=== PATIENT | male | born 1965 | race African-American/Black ===

== ENCOUNTER 2018-10-19 17:50 | Emergency (ER) | payer BC ==
[~2018-10-19] VITALS: Ht 190.5 cm; Wt 104.3 kg
[2018-10-19] MEDS ORDERED: CHLO25CA22 PO (18:00)
[2018-10-19 18:24] LABS: BASOPHILS % (AUTO) 0.6 % (0.0-2.0); EOSINOPHILS # (AUTO) 0.2 K/uL (0.0-0.7); EOSINOPHILS % (AUTO) 2.5 % (0.0-7.0); HEMATOCRIT 41.7 % (36.7-47.1); HEMOGLOBIN 14.2 g/dL (12.5-16.3); LYMPHOCYTES # (AUTO) 1.6 K/uL (20.0-40.0); LYMPHOCYTES % (AUTO) 21.3 % (20.5-51.5); MEAN CORPUSCULAR HEMOGLOBIN 31.9 uug (23.8-33.4); MEAN CORPUSCULAR HGB CONC 34 g/dL (32.5-36.3); MEAN CORPUSCULAR VOLUME 93.7 fL (73.0-96.2); MONOCYTES # (AUTO) 0.3 K/uL (2.0-10.0); MONOCYTES % (AUTO) 4.3 % (0.0-11.0); NEUTROPHILS # (AUTO) 5.5 K/uL (1.8-8.9); NEUTROPHILS % (AUTO) 71.3 % (38.5-71.5); PLATELET COUNT (AUTO) 202 K/uL (152-348); RED BLOOD CELL COUNT(AUTO) 4.45 MIL/uL (4.06-5.63); WHITE BLOOD COUNT (AUTO) 7.7 K/uL (3.6-10.2)
[2018-10-19] MEDS ORDERED: LORAZEPAM 2 MG/1 ML VIAL ONE (18:28)
[2018-10-19 18:30] LABS: CREATININE 1.6 mg/dL (0.6-1.3); POTASSIUM 4.3 mmol/L (3.5-5.1)
[2018-10-19] MEDS ORDERED: ONDANSETRON ODT 4 MG TAB.RAPDIS SL ONE (18:30)
[2018-10-19] MEDS ORDERED: LORAZEPAM 2 MG/1 ML VIAL IM ONE ×2 (18:30)
[2018-10-19] MEDS ORDERED: ONDANSETRON ODT 4 MG TAB.RAPDIS ONE (18:34)
[2018-10-19 18:42] LABS: BILIRUBIN,DIRECT 0.3 mg/dL (0.0-0.2); BILIRUBIN,TOTAL 1.1 mg/dL (0.2-1.0); TOTAL PROTEIN, SERUM 7.7 g/dL (6.4-8.2)
[2018-10-19] MEDS ORDERED: LORAZEPAM 0.5 MG TABLET PO ONE (19:00)
[2018-10-19] MEDS ORDERED: LORAZEPAM 1 MG TABLET ONE (19:00)
--- NOTE | 2018-10-19 19:01 | NUR ---
Patient discharged by MD in stable conditon & brisk staedy gait. Written and verbal after care instructions given to patient. Patient verbalizes understanding of instructions. Patient will call his own detox center to pick him up in the ER waiting room.
== END 2018-10-19 19:04 | disposition home or self-care (01) ==
LOC: ER 17:52
DX: R42 Dizziness and giddiness (principal); R11.0 Nausea; R10.9 Unspecified abdominal pain; F17.290 Nicotine dependence, other tobacco product, uncomplicated; Z79.899 Other long term (current) drug therapy
CPT/HCPCS: 36415; 70450; 80048; 80076; 83690; 85025; 93005; 96372; 99284; 99406; J2060; A4663; Q0162

== ENCOUNTER 2018-12-03 11:25 | Emergency (ER) | payer BC ==
[~2018-12-03] VITALS: Ht 190.5 cm; Wt 99.8 kg
[~2018-12-03 11:25] MED LIST: CHLO25CA22 PO
--- NOTE | 2018-12-03 11:33 | NUR ---
JOSE PAZ AT BEDSIDE FOR MSE.
--- NOTE | 2018-12-03 12:50 | NUR ---
Patient discharged to home in stable conditon. Written and verbal after care instructions given. Patient verbalizes understanding of instructions. PT D/C W/ PRESCRIPTIONS. ALL BELONGINGS W/ PT. PT SELF-AMBULATED W/O DIFFICULTY.
[2018-12-03 12:51] VITALS: BP 132/88
== END 2018-12-03 12:52 | disposition home or self-care (01) ==
LOC: ER 11:25
DX: J18.9 Pneumonia, unspecified organism (principal); Z76.0 Encounter for issue of repeat prescription; F17.200 Nicotine dependence, unspecified, uncomplicated; Z79.899 Other long term (current) drug therapy
CPT/HCPCS: 71046; A4663

== ENCOUNTER 2018-12-09 10:39 | Emergency (ER) | payer BC ==
[~2018-12-09] VITALS: Ht 190.5 cm; Wt 99.8 kg
--- NOTE | 2018-12-09 10:59 | NUR ---
PT A/OX4, PRESENTS TO THE ER STATING HE WAS INSTRUCTED BY SCHOOL NURSE TO VISIT THE ER DUE TO "HIGH B/P". VSS. PT REPORTS ANXIETY R/T HIGH B/P. PT DENIES ANY DISCOMFORT AT THIS TIME.
--- NOTE | 2018-12-09 11:03 | NUR ---
JOSE PAZ AT BEDSIDE FOR MSE.
--- NOTE | 2018-12-09 11:29 | NUR ---
PT TAKEN TO RADIOLOGY FOR CT SCAN.
--- NOTE | 2018-12-09 11:44 | NUR ---
PT BACK IN ER FROM RADIOLOGY.
[2018-12-09 11:48] LABS: BASOPHILS % (AUTO) 0.4 % (0.0-2.0); EOSINOPHILS # (AUTO) 0.1 K/uL (0.0-0.7); EOSINOPHILS % (AUTO) 1.2 % (0.0-7.0); HEMATOCRIT 31.6 % (36.7-47.1); HEMOGLOBIN 10.6 g/dL (12.5-16.3); LYMPHOCYTES % (AUTO) 22.2 % (20.5-51.5); MEAN CORPUSCULAR HEMOGLOBIN 30.8 uug (23.8-33.4); MEAN CORPUSCULAR HGB CONC 34 g/dL (32.5-36.3); MONOCYTES # (AUTO) 0.6 K/uL (2.0-10.0); NEUTROPHILS # (AUTO) 6.1 K/uL (1.8-8.9); NEUTROPHILS % (AUTO) 69.2 % (38.5-71.5); PLATELET COUNT (AUTO) 345 K/uL (152-348); RED BLOOD CELL COUNT(AUTO) 3.44 MIL/uL (4.06-5.63); WHITE BLOOD COUNT (AUTO) 8.9 K/uL (3.6-10.2)
[2018-12-09 11:50] LABS: CARBON DIOXIDE 24 mmol/L (21-32); CHLORIDE 103 mmol/L (98-107); CREATININE 1.2 mg/dL (0.6-1.3); GLUCOSE 103 mg/dL (74-106); POTASSIUM 3.6 mmol/L (3.5-5.1); UREA NITROGEN, BLOOD 16 mg/dL (7-18)
[2018-12-09 11:56] LABS: ALANINE AMINOTRANSFERASE 107 U/L (16-63); ALKALINE PHOSPHATASE 75 U/L (50-136); ASPARTATE AMINOTRANSFERASE 78 U/L (15-37); BILIRUBIN,DIRECT 0.3 mg/dL (0.0-0.2); BILIRUBIN,TOTAL 0.9 mg/dL (0.2-1.0); TOTAL PROTEIN, SERUM 8.5 g/dL (6.4-8.2)
[2018-12-09 12:06] LABS: ETHANOL < 3 MG/DL (0-0)
[2018-12-09 12:17] VITALS: BP 123/78
--- NOTE | 2018-12-09 12:17 | NUR ---
Patient discharged to home in stable conditon. Written and verbal after care instructions given. Patient verbalizes understanding of instructions. PT D/C W/ PRESCRIPTION. ALL BELONGINGS W/ PT. PT SELF-AMBULATED W/O DIFFICULTY.
== END 2018-12-09 12:18 | disposition home or self-care (01) ==
LOC: ER 10:39
DX: I10 Essential (primary) hypertension (principal); R42 Dizziness and giddiness; F17.200 Nicotine dependence, unspecified, uncomplicated; Z79.899 Other long term (current) drug therapy
CPT/HCPCS: 36415; 70450; 80048; 80076; 82140; 84484; 85025; 85730; 93005; 99284; G0480; 70030-TC; A4663

== ENCOUNTER 2019-03-16 18:25 | Emergency (ER) | payer BC ==
[~2019-03-16] VITALS: Ht 190.5 cm; Wt 99.8 kg
[2019-03-16] MEDS ORDERED: LORA-259 PO (18:36)
[2019-03-16] MEDS ORDERED: CLON0.2T PO (18:36)
--- NOTE | 2019-03-16 18:39 | NUR ---
PT A/OX4, BIB STAFF MEMBER FROM [facility], C/O L SHOULDER PAIN AND ETOH INTOXICATION. SHOULDER PAIN IS PROVOKED UPON MOVEMENT, SHARP IN QUALITY, DOES NOT RADIATE, 8/10, CONSTANT. NO DEFORMITY TO THE SHOULDER, ROM INTACT. VS WNL. PT DENIES C/P, SOB, N/V/D, DIZZINESS, HEADACHE.
--- NOTE | 2019-03-16 18:47 | NUR ---
AUTOMOBILE TRAVEL CLUB COUNSELOR AT BEDSIDE.
[2019-03-16] MEDS ORDERED: MORPHINE SULFATE 4 MG/1 ML DISP.SYRIN ONE (18:56)
--- NOTE | 2019-03-16 18:59 | NUR ---
SHIFT REPORT GIVEN TO RACHAEL Clemens RN.
[2019-03-16] MEDS ORDERED: MORPHINE SULFATE 4 MG/1 ML DISP.SYRIN IM ONE (19:00)
--- NOTE | 2019-03-16 19:12 | NUR ---
Pt out of ER for CT.
--- NOTE | 2019-03-16 19:23 | NUR ---
Pt back to ER from CT.
--- NOTE | 2019-03-16 20:11 | NUR ---
Patient discharged to home in stable conditon. Written and verbal after care instructions given. Patient verbalizes understanding of instructions. Pt ambulated out of ER with steady gait, no acute signs of distress, VSS, all belongings taken. Patient accompanied by [facility] detox staff to be driven back to detox facility via private vehicle.
[2019-03-16 20:14] VITALS: BP 135/80
== END 2019-03-16 20:15 | disposition home or self-care (01) ==
LOC: ER 18:25
DX: S42.125A Nondisplaced fracture of acromial process, left shoulder, initial encounter for closed fracture (principal); S09.90XA Unspecified injury of head, initial encounter; J40 Bronchitis, not specified as acute or chronic; F17.290 Nicotine dependence, other tobacco product, uncomplicated; Z79.899 Other long term (current) drug therapy; Y04.0XXA Assault by unarmed brawl or fight, initial encounter; Y93.89 Activity, other specified; Y92.89 Other specified places as the place of occurrence of the external cause; Y99.8 Other external cause status
CPT/HCPCS: 70450; 71045; 73030; 96372; 99284; 99406; J2270; A4663

== ENCOUNTER 2019-03-19 03:19 | Emergency (ER) | payer BC ==
[~2019-03-19] VITALS: Ht 190.5 cm; Wt 99.8 kg
[~2019-03-19 03:19] MED LIST changes: -CHLO25CA22 PO; +CLON0.2T PO; +LORA-259 PO
[2019-03-19] MEDS ORDERED: IV NORMAL SALINE 1000 ML BAG IV ONE (03:30)
--- NOTE | 2019-03-19 03:31 | NUR ---
D/c information : cupola operator from [facility], [place] [phone]
--- NOTE | 2019-03-19 03:35 | NUR ---
Patient ambulated with stable gait. Speech is clear, speaks in complete sentences. No neuro deficits. Patient came for c/o pain primarily, and heavy chest feeling since earlier today. Patient came from a detox clinic. Respiratory even and unlabored, no cough no sob. No GI/ distress noted. Patient in bed at lowest position, sr upx2, call light within reach. fall precautions implemented per protocol.
[2019-03-19 03:58] LABS: BASOPHILS % (AUTO) 0.8 % (0.0-2.0); CREATININE 1.2 mg/dL (0.6-1.3); EOSINOPHILS # (AUTO) 0.2 K/uL (0.0-0.7); EOSINOPHILS % (AUTO) 2.9 % (0.0-7.0); HEMATOCRIT 35.3 % (36.7-47.1); HEMOGLOBIN 11.7 g/dL (12.5-16.3); LYMPHOCYTES # (AUTO) 2.4 K/uL (20.0-40.0); LYMPHOCYTES % (AUTO) 42.2 % (20.5-51.5); MEAN CORPUSCULAR HEMOGLOBIN 30.3 uug (23.8-33.4); MEAN CORPUSCULAR HGB CONC 33 g/dL (32.5-36.3); MEAN CORPUSCULAR VOLUME 91.4 fL (73.0-96.2); MONOCYTES # (AUTO) 0.3 K/uL (2.0-10.0); MONOCYTES % (AUTO) 5.4 % (0.0-11.0); NEUTROPHILS # (AUTO) 2.8 K/uL (1.8-8.9); NEUTROPHILS % (AUTO) 48.7 % (38.5-71.5); PLATELET COUNT (AUTO) 217 K/uL (152-348); POTASSIUM 4.2 mmol/L (3.5-5.1); RED BLOOD CELL COUNT(AUTO) 3.87 MIL/uL (4.06-5.63); WHITE BLOOD COUNT (AUTO) 5.8 K/uL (3.6-10.2)
[2019-03-19] MEDS ORDERED: IV NORMAL SALINE 250 ML IV ONE (04:07)
[2019-03-19] MEDS ORDERED: SWABABLE VALVE TRANSFER SET EA MC ONE (04:07)
[2019-03-19] MEDS ORDERED: IOHEXOL 350 100 ML INFUS..BTL ONE (04:07)
[2019-03-19 04:11] LABS: BILIRUBIN,DIRECT 0.2 mg/dL (0.0-0.2); BILIRUBIN,TOTAL 0.7 mg/dL (0.2-1.0); TOTAL PROTEIN, SERUM 6.9 g/dL (6.4-8.2)
--- NOTE | 2019-03-19 05:03 | NUR ---
Patient discharged to home in stable conditon. Written and verbal after care instructions given. Patient verbalizes understanding of instructions. Patient ambulated with stable gait. Denies any acute pain.
[2019-03-19 05:08] VITALS: BP 126/78
== END 2019-03-19 05:04 | disposition home or self-care (01) ==
LOC: ER 03:21
DX: S29.9XXA Unspecified injury of thorax, initial encounter (principal); F17.200 Nicotine dependence, unspecified, uncomplicated; Z79.899 Other long term (current) drug therapy; X58.XXXA Exposure to other specified factors, initial encounter; Y93.89 Activity, other specified; Y92.89 Other specified places as the place of occurrence of the external cause; Y99.8 Other external cause status
CPT/HCPCS: 36415; 71275; 80048; 80076; 83880; 84484; 85025; 85730; 93005; 99284; Q9967; 70030-TC; A4663; J7030; J7050

== ENCOUNTER 2019-05-09 11:24 | Emergency (ER) | payer BC ==
[~2019-05-09] VITALS: Ht 190.5 cm; Wt 94.3 kg
--- NOTE | 2019-05-09 11:56 | NUR ---
Dr Blair at bedside doing his MSE.
[2019-05-09] MEDS ORDERED: HYDROCODONE/APAP 5-325MG TABLET PO ONE (12:00)
[2019-05-09] MEDS ORDERED: HYDROCODONE/APAP 5-325MG TABLET ONE (12:08)
--- NOTE | 2019-05-09 13:19 | NUR ---
Decreased pains expressed by patient. Patient is also discharged to home in stable conditon with brisk steady gait. Written and verbal after care instructions given to patient. Patient verbalizes understanding & compliance of instructions.
== END 2019-05-09 13:20 | disposition home or self-care (01) ==
LOC: ER 11:24
DX: S29.012A Strain of muscle and tendon of back wall of thorax, initial encounter (principal); F17.200 Nicotine dependence, unspecified, uncomplicated; Z79.899 Other long term (current) drug therapy; X50.1XXA Overexertion from prolonged static or awkward postures, initial encounter; Y93.89 Activity, other specified; Y92.89 Other specified places as the place of occurrence of the external cause; Y99.8 Other external cause status
CPT/HCPCS: 71046; A4663

== ENCOUNTER 2019-09-20 15:20 | Emergency (ER) | payer BC, MEDICAID ==
[~2019-09-20] VITALS: Ht 190.5 cm; Wt 95.3 kg
--- NOTE | 2019-09-20 15:37 | NUR ---
Patient ambulated to bathroom with brisk steady gait.
--- NOTE | 2019-09-20 15:40 | NUR ---
Patient said that he was able to "pee well". Urine sample was collected & sent to lab.
[2019-09-20 15:58] LABS: *BILIRUBIN,URIN NEGATIVE (NEGATIVE); *BLOOD, URINE NEGATIVE (NEGATIVE); *CLARITY,URINE CLEAR (CLEAR); *COLOR,URINE AMBER (YELLOW); *KETONES,URINE TRACE (NEGATIVE); *UROBILINOGEN,URINE 0.2 E.U./dl (NORMAL); LEUKOCYTE ESTERASE ,URINE NEGATIVE (NEGATIVE); NITRITE, URINE NEGATIVE (NEGATIVE); UGLUCOSE NEGATIVE (NEGATIVE)
[2019-09-20 16:08] LABS: COARSE GRANULAR CASTS,URINE 0-3 /LPF; MUCUS,URINE MANY /LPF (0-FEW)
[2019-09-20 16:08] LABS: BASOPHILS % (AUTO) 0.4 % (0.0-2.0); EOSINOPHILS # (AUTO) 0.1 K/uL (0.0-0.7); HEMATOCRIT 43.1 % (36.7-47.1); HEMOGLOBIN 14.4 g/dL (12.5-16.3); LYMPHOCYTES # (AUTO) 3.5 K/uL (20.0-40.0); LYMPHOCYTES % (AUTO) 36.5 % (20.5-51.5); MEAN CORPUSCULAR HEMOGLOBIN 31.2 uug (23.8-33.4); MEAN CORPUSCULAR HGB CONC 34 g/dL (32.5-36.3); MEAN CORPUSCULAR VOLUME 93.1 fL (73.0-96.2); MONOCYTES # (AUTO) 0.9 K/uL (2.0-10.0); MONOCYTES % (AUTO) 9.2 % (0.0-11.0); NEUTROPHILS # (AUTO) 5.1 K/uL (1.8-8.9); NEUTROPHILS % (AUTO) 52.9 % (38.5-71.5); PLATELET COUNT (AUTO) 339 K/uL (152-348); RED BLOOD CELL COUNT(AUTO) 4.63 MIL/uL (4.06-5.63); WHITE BLOOD COUNT (AUTO) 9.6 K/uL (3.6-10.2)
[2019-09-20 16:14] LABS: *AMPHETAMINE, URINE POSITIVE (NEGATIVE); *BARBITURATE, URINE NEGATIVE (NEGATIVE); *CANNABINOID, URINE NEGATIVE (NEGATIVE); *COCCAINE, URINE POSITIVE (NEGATIVE); *OPIATE, URINE NEGATIVE (NEGATIVE); *PHENCYCLIDINE SCREEN,URINE NEGATIVE (NEGATIVE)
[2019-09-20 16:16] LABS: CARBON DIOXIDE 24 mmol/L (21-32); CHLORIDE 100 mmol/L (98-107); CREATININE 1.1 mg/dL (0.6-1.3); GLUCOSE 83 mg/dL (74-106); POTASSIUM 3.9 mmol/L (3.5-5.1); UREA NITROGEN, BLOOD 19 mg/dL (7-18)
[2019-09-20 16:22] LABS: ALANINE AMINOTRANSFERASE 450 U/L (16-63); ALKALINE PHOSPHATASE 89 U/L (50-136); ASPARTATE AMINOTRANSFERASE 367 U/L (15-37); BILIRUBIN,DIRECT 0.4 mg/dL (0.0-0.2); BILIRUBIN,TOTAL 1.2 mg/dL (0.2-1.0); TOTAL PROTEIN, SERUM 8.8 g/dL (6.4-8.2)
[2019-09-20 16:23] LABS: ACETAMINOPHEN < 2.0 ug/mL (10-30); ETHANOL 51 MG/DL (0-0)
[2019-09-20] MEDS ORDERED: PAXIL (16:30)
[2019-09-20] MEDS ORDERED: BUPR100T5 PO (16:30)
[2019-09-20] MEDS ORDERED: LITH300T3 PO (16:30)
[2019-09-20] MEDS ORDERED: ELIQUIS (16:30)
[2019-09-20] MEDS ORDERED: ARIP10TA9 PO (16:30)
--- NOTE | 2019-09-20 17:13 | NUR ---
Patient is resting comfortably on gurney with eyes closed, NAD. When patient is awake, he is seen using his cellphone, pending results and disposition, calm & cooperative@this time
--- NOTE | 2019-09-20 17:20 | NUR ---
Pt states he stated what he said earlier at triage because he was looking for a place to stay. Pt now states he does not feel suicidal and wants to leave because he "wants to go get high". Offered pt information about homeless shelters but pt stated he has a place to live with his friend. Pt has no other medical complaints and ambulated out of ER with steady gait. ERMD notified.
== END 2019-09-20 17:28 | disposition left against medical advice (07) ==
LOC: ER 15:20
DX: F31.9 Bipolar disorder, unspecified (principal); F19.90 Other psychoactive substance use, unspecified, uncomplicated; F17.200 Nicotine dependence, unspecified, uncomplicated; Z79.899 Other long term (current) drug therapy
CPT/HCPCS: 36415; 80048; 80076; 80307; 81000; 81001; 85025; 93005; 99284; G0480 ×2; G0481; A4663

== ENCOUNTER 2019-09-20 18:20 | Inpatient (IN) | payer MEDICAID ==
[~2019-09-20] VITALS: Ht 190.5 cm; Wt 90.7 kg
[~2019-09-20 18:20] MED LIST changes: +ARIP10TA9 PO; +BUPR100T5 PO; -CLON0.2T PO; +ELIQUIS; +LITH300T3 PO; -LORA-259 PO; +PAXIL
--- NOTE | 2019-09-20 18:23 | NUR ---
ATTEMPTED TO TRAIGE PT, PT WAS NOT FOUND IN ER WAITING ROOM.
--- NOTE | 2019-09-20 18:37 | NUR ---
PT IS IN ROOM 3, SECURITY IS AT BEDSIDE FOR 1:1 OBSERVATION.
--- NOTE | 2019-09-20 18:47 | NUR ---
Psych inventory worker Lidya Wagoner EOL=[id number]
[2019-09-20] MEDS ORDERED: IV NS 1000 ML 1,000 ML IV ONE (19:00)
[2019-09-20] MEDS ORDERED: IV NORMAL SALINE 1000 ML BAG IV ONE ×2 (19:15)
[2019-09-20] MEDS ORDERED: LORAZEPAM 2 MG/1 ML VIAL IV ONE (19:30)
[2019-09-20 19:51] LABS: BASOPHILS # (AUTO) 0.1 K/uL (0.0-8.0); EOSINOPHILS # (AUTO) 0.1 K/uL (0.0-0.7); EOSINOPHILS % (AUTO) 1.2 % (0.0-7.0); HEMATOCRIT 41.1 % (36.7-47.1); HEMOGLOBIN 13.7 g/dL (12.5-16.3); LYMPHOCYTES # (AUTO) 3.6 K/uL (20.0-40.0); LYMPHOCYTES % (AUTO) 35.8 % (20.5-51.5); MEAN CORPUSCULAR HEMOGLOBIN 31.2 uug (23.8-33.4); MEAN CORPUSCULAR HGB CONC 33 g/dL (32.5-36.3); MEAN CORPUSCULAR VOLUME 93.4 fL (73.0-96.2); MONOCYTES # (AUTO) 1.2 K/uL (2.0-10.0); MONOCYTES % (AUTO) 11.5 % (0.0-11.0); NEUTROPHILS # (AUTO) 5.1 K/uL (1.8-8.9); NEUTROPHILS % (AUTO) 50.5 % (38.5-71.5); PLATELET COUNT (AUTO) 312 K/uL (152-348); WHITE BLOOD COUNT (AUTO) 10.1 K/uL (3.6-10.2)
[2019-09-20 20:02] LABS: CARBON DIOXIDE 22 mmol/L (21-32); CHLORIDE 100 mmol/L (98-107); CREATININE 1.1 mg/dL (0.6-1.3); GLUCOSE 86 mg/dL (74-106); POTASSIUM 3.7 mmol/L (3.5-5.1); UREA NITROGEN, BLOOD 21 mg/dL (7-18)
[2019-09-20 20:06] LABS: ALANINE AMINOTRANSFERASE 426 U/L (16-63); ALKALINE PHOSPHATASE 84 U/L (50-136); ASPARTATE AMINOTRANSFERASE 350 U/L (15-37); BILIRUBIN,DIRECT 0.3 mg/dL (0.0-0.2); BILIRUBIN,TOTAL 1.2 mg/dL (0.2-1.0); LIPASE 75 U/L (73-393); TOTAL PROTEIN, SERUM 8.2 g/dL (6.4-8.2)
[2019-09-20 20:07] LABS: ACETAMINOPHEN < 2.0 ug/mL (10-30)
[2019-09-20 20:18] LABS: THYROID STIMULATING HORMONE 1.06 mIU/mL (0.358-3.740)
--- NOTE | 2019-09-20 21:37 | NUR ---
EPIC CALLED DR MARTINI
[2019-09-20] MEDS ORDERED: SWABABLE VALVE TRANSFER SET EA MC ONE (21:39)
[2019-09-20] MEDS ORDERED: IOHEXOL 300MG/ML 100 ML INFUS..BTL ONE (21:39)
[2019-09-20] MEDS ORDERED: IV NORMAL SALINE 250 ML IV ONE (21:39)
[2019-09-20] MEDS ORDERED: AZITHROMYCIN 250 MG TABLET PO ONE (21:45)
[2019-09-20] MEDS ORDERED: CEFTRIAXONE 500 MG VIAL IM ONE (21:45)
[2019-09-20] MEDS ORDERED: Z GUARD REMEDY PASTE 57 GM TUBE TOP PRN (22:00)
[2019-09-20] MEDS ORDERED: TEMAZEPAM 15 MG CAPSULE PO PRN (22:00)
[2019-09-20] MEDS ORDERED: ONDANSETRON 4 MG/2 ML VIAL IV PRN (22:00)
[2019-09-20] MEDS ORDERED: MAGNESIUM HYDROXIDE 30 ML LIQUID UDC PO PRN (22:00)
[2019-09-20] MEDS ORDERED: ZIPRASIDONE MESYLATE 20 MG VIAL IM ONE ×4 (22:04→22:45)
[2019-09-20] MEDS ORDERED: CEFTRIAXONE /D5W 50ML IVPB **ER PYXIS IV ONE (22:19)
--- NOTE | 2019-09-21 02:00 | NUR ---
restraints removed, patient sleeping, calm, cooperative, follows commands.
--- NOTE | 2019-09-21 02:18 | NUR ---
patient transferred to tele floor in stable condition. patient transferred via antoni with BURAK Woodruff and upscale security officer, Polly.
--- NOTE | 2019-09-21 03:00 | NUR ---
Patient arrived in unit at around 0210 via gurney, transported by ER nurse. Pt asleep and hard to arouse but appears comfortable. Noted with tremors. CIWA score: 12. Per Er report patient given Ativan 2mg and Geodon 10mg for substance use withdrawal, patient tested positive on Coccaine/Metamphetamines and Alcohol level is 0.10. Appeared to be effective for patient, as he is resting at this time. All belongings accounted for, valuable belongings placed in safe by Charge Nurse and Primary nurse witnessed. Patient with 900$ nguyen, couple of bank cards, identification cards, SS card, and business cards inside his wallet. RN co-signed receipt, patient unable to sign because he is still out. Cigarettes (2), Lighters (3), Phones (2), Wire cords (3) placed in Contraband locker, with jayne Toney witnessing. All items listed and placed in chart. Initial assessment done, no noted skin issues. Unable to get information from patient, relied on previous medical records. Sinus rhythm on tele, slightly tachycardic at 95. Kept comfortable and safe, removed all dangerous items at bedside. Will continue to monitor.
[2019-09-21 03:22] VITALS: BP 114/71
[2019-09-21 05:26] VITALS: BP 118/77
--- NOTE | 2019-09-21 06:50 | NUR ---
Patient remained asleep throughout shift, woke up during lab draw. Water offered and patient went back to sleep. Current CIWA Score: 1. Sitter at bedside. Safety and Suicidal precautions all maintained. DVT pump not placed for safety reasons. No tremors observed at this moment. Will continue to monitor and endorse accordingly.
--- NOTE | 2019-09-21 06:52 | NUR ---
Remained Sinus Rhythm on Tele between 90-95bpm.
[2019-09-21 07:15] LABS: BILIRUBIN,TOTAL 1.4 mg/dL (0.2-1.0); MAGNESIUM 2.1 mg/dL (1.8-2.4); PHOSPHOROUS 3.6 mg/dL (2.5-4.9); POTASSIUM 4.5 mmol/L (3.5-5.1); TOTAL PROTEIN, SERUM 8.4 g/dL (6.4-8.2)
[2019-09-21 07:21] LABS: BASOPHILS # (AUTO) 0.1 K/uL (0.0-8.0); BASOPHILS % (AUTO) 1.3 % (0.0-2.0); EOSINOPHILS % (AUTO) 0.4 % (0.0-7.0); HEMOGLOBIN 13.7 g/dL (12.5-16.3); LYMPHOCYTES # (AUTO) 1.3 K/uL (20.0-40.0); LYMPHOCYTES % (AUTO) 19.1 % (20.5-51.5); MEAN CORPUSCULAR HEMOGLOBIN 31.1 uug (23.8-33.4); MEAN CORPUSCULAR HGB CONC 33 g/dL (32.5-36.3); MEAN CORPUSCULAR VOLUME 93.3 fL (73.0-96.2); MONOCYTES # (AUTO) 0.6 K/uL (2.0-10.0); MONOCYTES % (AUTO) 9.5 % (0.0-11.0); NEUTROPHILS # (AUTO) 4.6 K/uL (1.8-8.9); NEUTROPHILS % (AUTO) 69.7 % (38.5-71.5); PLATELET COUNT (AUTO) 299 K/uL (152-348); WHITE BLOOD COUNT (AUTO) 6.6 K/uL (3.6-10.2)
--- NOTE | 2019-09-21 07:55 | NUR ---
REDIRECTED THE PATIENT PROVIDED SOME MORE FOOD AND JUICES CONTINUE TO MONITOR HIM WITH 1: 1 SITTER.
--- NOTE | 2019-09-21 07:55 | NUR ---
RECEIVED PATIENT IN BED AWAKE AND ALERT, WITH 1: 1 SITTER FOR SAFETY, INTERVIEW PATIENT HIS ORIENTATION AND ANY REGARDS TO HARMING HIMSELF, PATIENT STATED GLASS, ASK HIM TO REPEAT IT, GOT AGITATED AND STATED WANTED TO SWALLOW GLASS AND POINTED TO THE WINDOW. ALSO HE STATED TO THAT HE WAS HUNGRY ,SO I GAVE HIM A SANDWICH AND WAS ABLE TO TOLERATE IT.
[2019-09-21 08:00] VITALS: BP 119/82
--- NOTE | 2019-09-21 08:30 | NUR ---
AFTER BREAKFAST GOT AGITATED AND ORDERED MORE FOOD. PRN ATIVAN GIVEN 1MG FOR AGITATION.
[2019-09-21] MEDS: THIAMINE HCL 100 MG TABLET PO SCH (08:45)
[2019-09-21] MEDS: FOLIC ACID 1 MG TABLET PO SCH (08:45)
[2019-09-21] MEDS: IV NS 1000 ML 1,000 ML IV PRN ×2 (08:45→17:52)
[2019-09-21] MEDS: LORAZEPAM 2 MG/1 ML VIAL IV PRN ×2 (08:59→13:02)
[2019-09-21] MEDS: OLANZAPINE ZYDIS 5 MG TAB.RAPDIS PO SCH ×2 (13:52→17:43)
[2019-09-21] MEDS: APIXABAN 5 MG TABLET PO SCH (18:03)
--- NOTE | 2019-09-21 18:23 | NUR ---
RESIDENT IN BED CALM AND SLEEPING, ASK ABOUT DINNER HE STATED TO EAT IT LATER , HOWEVER CONSUMED MEDICATION BEFORE HE WENT BACK TO SLEEP. CONTINUE TO MONITOR KEPT CLEAN AND DRY AT ALL TIMES. CONTINUE WITH 1:1 SITTER FOR SAFETY. WILL CONTINUE FOR MONITOR. DENIES ANY SI/HI AT THIS TIME.
--- NOTE | 2019-09-21 19:20 | NUR ---
Patient received sleeping and resting well. 1:1 sitter at bedside for suicide ideations. 5150 hold still active until 09/23/191946. Bed kept low, with bed alarm on. Removed all dangerous items at bedside. Will monitor patient's safety.
[2019-09-21 20:00] VITALS: BP 120/82
[2019-09-21] MEDS: CEFTRIAXONE 1 G in IV DEXTROSE 5% 50 ML IV SCH (20:44)
[2019-09-22] MEDS: IV NS 1000 ML 1,000 ML IV PRN ×2 (01:30→20:28)
[2019-09-22 04:00] VITALS: BP 128/94
--- NOTE | 2019-09-22 04:30 | NUR ---
Patient accidentally pulled out IV due to tremors. CIWA score: 8 at this time. About to give Ativan, but have to reinsert IV.
[2019-09-22] MEDS: LORAZEPAM 2 MG/1 ML VIAL IV PRN ×2 (05:30→10:34)
--- NOTE | 2019-09-22 05:30 | NUR ---
Unable to insert IV due to patient tremors and sudden movement. Asked assistance from ER, sitter and RN holding patient. Able to reinsert new IV at R forearm 20G. IV fluids restarted, Ativan 0.5mg given as ordered.
--- NOTE | 2019-09-22 06:35 | NUR ---
Pt is now resting comfortably, no more tremors. CIWA score: 1 at this time. 1:[address] No verbalization of suicidal ideation during shift. Mostly asleep, for about 10 hours. When awake, asking for food and drinks. All needs attended. Will endorse accordingly.
[2019-09-22 08:13] VITALS: BP 116/86
[2019-09-22] MEDS: FOLIC ACID 1 MG TABLET PO SCH (08:37)
[2019-09-22] MEDS: THIAMINE HCL 100 MG TABLET PO SCH (08:37)
[2019-09-22] MEDS: OLANZAPINE ZYDIS 5 MG TAB.RAPDIS PO SCH ×2 (08:37→13:52)
[2019-09-22] MEDS: APIXABAN 5 MG TABLET PO SCH ×2 (08:39→16:21)
--- NOTE | 2019-09-22 08:45 | NUR ---
Patient lethargic, and diaphoretic. arousable to touch oriented x 2-3. one to one sitter at bedside.
[2019-09-22 11:37] LABS: BILIRUBIN,DIRECT 0.3 mg/dL (0.0-0.2); BILIRUBIN,TOTAL 1.1 mg/dL (0.2-1.0); TOTAL PROTEIN, SERUM 6.9 g/dL (6.4-8.2)
--- NOTE | 2019-09-22 11:46 | NUR ---
Psychiatric Placement and Crisis Team Note Discusssed this case with Dr Johnson. Patient is currently not medically stable for transfer. He is currently in acute withdrawal and recently used alcohol, methamphetamine and cocaine. Patient reports a history of schizoaffective disorder. Patient is taking Zyprexa prescribed by Dr Johnson. He has a home and will return there once stable. Patient will be given referrals for substance abuse treatment and outpatient psychiatry. He is unlikely to be accepted at an inpatient psychiatric unit due to his acute withdrawal syndrome. Patient is also on IV antibiotics so not clear for any acute psychiatric unit. Patient is not appropriate for admission to our MHU unit and will remain on medsurg. until he is medically stable for discharge home. Dx: Polysubstance withdrawal and possible delirium due to alcohol withdrawal. Nursing are doing CIWA scores. Plan: Patient will be discharged home with referral for substance abuse treatment and outpatient treatment once he is stable for discharge. Dr Johnson is agreeable to this plan. Patient is currently on a 5150 with a 1:1 sitter. Nursing notes today report patient is currently denying suicidal ideation. Will follow up if needed. Dr Johnson will monitor patient and adjust psychothropic medication accordingly. Patient will go home and not to any acute psychiatric unit (unless there is a change in presentation) once medically stable.
--- NOTE | 2019-09-22 11:46 | NUR ---
Patient been seen and examine by psychiatrist, Dr. Johnson.
[2019-09-22 12:08] VITALS: BP 125/86
--- NOTE | 2019-09-22 15:50 | NUR ---
Social Work Consultation: Rv Servicer met with patient today to collect information regarding patient's living arrangements. Patient is unable to give meaningful information at this time as he is too sedated to respond to questions. Rv Servicer will meet with patient again tomorrow to conduct a more thorough assessment.
[2019-09-22 16:00] VITALS: BP 126/85
--- NOTE | 2019-09-22 17:00 | NUR ---
Pts. friend in to visit Bruce Daron Marino emergency contact. Updated report given.
--- NOTE | 2019-09-22 19:00 | NUR ---
patient left on bed resting, arousable to name AAOX2-3. with periods of restlessness and agitation, easily redirected. 1:1 sitter at bedside.
--- NOTE | 2019-09-22 19:30 | NUR ---
RECEIVED PT AWAKE, ALERT AND ORIENTEDX3. SITTER AT BEDSIDE FOR SAFETY. PT IN NO ACUTE DISTRESS. IV INTACT. SAFETY AND COMFORT PROVIDED. WILL CONTINUE TO MONITOR.
[2019-09-22 20:00] VITALS: BP 130/90
[2019-09-22] MEDS ORDERED: OLANZAPINE ZYDIS 5 MG TAB.RAPDIS PO SCH (20:00)
[2019-09-22] MEDS: CEFTRIAXONE 1 G in IV DEXTROSE 5% 50 ML IV SCH (20:22)
[2019-09-23] MEDS: OLANZAPINE ZYDIS 5 MG TAB.RAPDIS PO SCH ×2 (08:49→13:08)
[2019-09-23] MEDS: THIAMINE HCL 100 MG TABLET PO SCH (08:49)
[2019-09-23] MEDS: FOLIC ACID 1 MG TABLET PO SCH (08:49)
[2019-09-23] MEDS: APIXABAN 5 MG TABLET PO SCH (08:52)
[2019-09-23] MEDS ORDERED: LEVO500T90 PO (10:28)
[2019-09-23] MEDS ORDERED: SULF1TAB48 PO (12:17)
--- NOTE | 2019-09-23 12:57 | NUR ---
Social Work Discharge Note: Automobile Body Repair Chief met with patient today who stated he would like to return back to his Sober Living but was unable to give the appropriate information. Automobile Body Repair Chief spoke with Jamila Neri, patients significant other ([phone]) who stated patient currently resides at [facility] [address] [place] [address] ([phone]). Automobile Body Repair Chief spoke with Katarina the manager air at the [facility] ([phone]) who stated that the patient is welcome to return back today. survey worker provided patient the following outpatient mental health resources; [facility] [address] [place] [address] ([phone]) and [facility] [address] [place] [address] ([phone]). Patient was also provided with the [facility] Substance Abuse Self-helpline ([facility]) ([phone]), [facility] [address] [place] [address] ([phone]), [facility] [address] [place] [address] ([phone]). Patient was provided with the homeless mcfp packet, which includes a list of emergency shelters, housing resources, drop in centers, and showers/hot meals centers. This also included the Homeless Information Hotline (470)-954-0750 or 211, [place] for [employer] , and the [facility] ([phone]. Patient was also provided with outpatient mental health resources to [facility] Crisis [facility] , and the National Suicide Prevention Lifeline . Patient was agreeable to the discharge plan and was given a TAP card for transportation back to his sober living.
--- NOTE | 2019-09-23 14:00 | NUR ---
Discharge patient to [facility], via Bus, tap card given to patient and patient verbalized that he will be going to [facility] and given him direction and stated he knows where it is. discharge instruction given and verbalized understanding , iv and id removed, all belonging including safety box and contrabands return to patient, signed and witness. no c/o of pain . notified Katarina from [facility] that patient stated that he will be going to [facility]. Questions and concerns addressed. Escorted patient out of facility with tap card..
== END 2019-09-23 14:00 | disposition home or self-care (01) | DRG 774 ==
LOC: ER 18:24 → TELE3 09-21 01:58 → MEDSURG3 09-21 10:24
PROVIDERS: ADMIT Internal Medicine; ATTEND Internal Medicine
DX: F10.221 Alcohol dependence with intoxication delirium (principal); F14.10 Cocaine abuse, uncomplicated; E87.2 Acidosis; F25.0 Schizoaffective disorder, bipolar type; K70.9 Alcoholic liver disease, unspecified; F15.10 Other stimulant abuse, uncomplicated; Y90.4 Blood alcohol level of 80-99 mg/100 ml; R74.0 Nonspecific elevation of levels of transaminase and lactic acid dehydrogenase [LDH]; Z86.718 Personal history of other venous thrombosis and embolism; N50.811 Right testicular pain; K42.9 Umbilical hernia without obstruction or gangrene
CPT/HCPCS: 36415; 76870; 83605; 83690; 83735; 84100; 84443; 85025; 87040; 93005; A4663; G0378; G0480; G0480-TC; J0696; J2060; J2405; J3486; J3490; J7030; J7050; J7060; Q9967

== ENCOUNTER 2022-01-31 11:08 | Emergency (ER) | payer BC, MEDICAID, OTHER ==
[~2022-01-31] VITALS: Ht 190.5 cm; Wt 108.9 kg
[~2022-01-31 11:08] MED LIST changes: +SULF1TAB48 PO
[2022-01-31] MEDS ORDERED: FAMOTIDINE. 20 MG/2 ML VIAL IV ONE ×2 (11:30→11:48)
[2022-01-31] MEDS ORDERED: LIDOCAINE VISCUS 2% 15 ML UDC MM ONE (11:30)
[2022-01-31] MEDS ORDERED: MAG HYDROX/AL HYDROX/SIMETH 30 ML LIQUID UDC PO ONE (11:30)
--- NOTE | 2022-01-31 11:44 | NUR ---
PT IS IN ROOM #2A. DR PATEL EVALUATED THE PT.
[2022-01-31] MEDS ORDERED: LIDOCAINE VISCUS 2% 15 ML UDC ONE (11:46)
[2022-01-31] MEDS ORDERED: MAG HYDROX/AL HYDROX/SIMETH 30 ML LIQUID UDC ONE (11:47)
[2022-01-31 11:48] LABS: *BILIRUBIN,URIN NEGATIVE (NEGATIVE); *BLOOD, URINE NEGATIVE (NEGATIVE); *CLARITY,URINE CLEAR (CLEAR); *COLOR,URINE YELLOW (YELLOW); *KETONES,URINE NEGATIVE (NEGATIVE); *UROBILINOGEN,URINE 0.2 E.U./dl (NORMAL); LEUKOCYTE ESTERASE ,URINE NEGATIVE (NEGATIVE); NITRITE, URINE NEGATIVE (NEGATIVE); UGLUCOSE NEGATIVE (NEGATIVE)
[2022-01-31 11:49] LABS: HEMATOCRIT 42.2 % (36.7-47.1); MEAN CORPUSCULAR HEMOGLOBIN 30.4 uug (23.8-33.4); MEAN CORPUSCULAR VOLUME 89.2 fL (73.0-96.2); PLATELET COUNT (AUTO) 242 K/uL (152-348)
[2022-01-31 12:02] LABS: ALANINE AMINOTRANSFERASE 70 U/L (16-63); ALKALINE PHOSPHATASE 88 U/L (50-136); ASPARTATE AMINOTRANSFERASE 52 U/L (15-37); BILIRUBIN,DIRECT 0.2 mg/dL (0.0-0.2); BILIRUBIN,TOTAL 1.2 mg/dL (0.2-1.0); CARBON DIOXIDE 26 mmol/L (21-32); CHLORIDE 104 mmol/L (98-107); GLUCOSE 120 mg/dL (74-106); POTASSIUM 3.7 mmol/L (3.5-5.1); UREA NITROGEN, BLOOD 31 mg/dL (7-18)
[2022-01-31 12:39] LABS: LIPASE 70 U/L (73-393)
[2022-01-31] MEDS ORDERED: FAMO-132 PO (14:39)
--- NOTE | 2022-01-31 15:07 | NUR ---
PT WAS D/C'd TO HOME. D/C INSTRUCTIONS GIVEN TO THE PT BY DR PATEL.
[2022-01-31 15:08] VITALS: BP 132/82
== END 2022-01-31 15:09 | disposition home or self-care (01) ==
LOC: ER 11:08
DX: R10.13 Epigastric pain (principal); R74.01 Elevation of levels of liver transaminase levels; F31.9 Bipolar disorder, unspecified; R10.11 Right upper quadrant pain; Z86.718 Personal history of other venous thrombosis and embolism; Z79.01 Long term (current) use of anticoagulants; Z79.899 Other long term (current) drug therapy; R03.0 Elevated blood-pressure reading, without diagnosis of hypertension
CPT/HCPCS: 36415; 74176; 76705; 80048; 80076; 81003; 83690; 84484 ×2; 85025; 93005; 96374; 99285; J3490; A4663